=== PATIENT | female | born 1970 | race Caucasian/White ===

== ENCOUNTER 2023-02-24 12:11 | Emergency (ER) | payer MEDICAID, SELFPAY ==
[2023-02-24 12:12] VITALS: BP 173/91; PULSE 87; RESP 16; TEMP 36.2; O2SAT 99; BMI 27.6
--- NOTE | 2023-02-24 12:26 | EDS_ITS ---
HPI History of Present Illness Chief Complaint: Chest Pain Informant: patient Onset/Context/Timing Onset: Days Activity at onset: gradual Timing: Continuous Quality: Positive for Burning Location: Left Parasternal and Left Chest Current Severity: Mild Maximum Severity: Mild Worsened By: Nothing; Not Worsened By Exertion, Movement of Arm, Movement of Torso, Eating, Palpation, Breathing or Coughing Relieved By: Nothing Associated Symptoms: Negative for Nausea, Vomiting, Diaphoresis, Dyspnea, Cough, Fever, Lightheadedness, Acid Reflux or Palpitations Narrative Narrative: 52-year-old seen male no seen past medical history. No cardiac history. No history of DVT or PE or risk factors. States that she has had left-sided chest pain for the last 3 days it began on . Gradual. Continuous. Nothing particular makes it better or worse. Not associated with exertion. No shortness of breath. Not pleuritic. No palpitations. No nausea. No diaphoresis. No trouble walking. Prior Similar Symptoms: No Recent Illness/Hospitalization: No CVD Risk Factors: Negative for Hypertension, Diabetes, Hypercholesterolemia or Smoking PE Risk Factors: Negative for Recent Travel/Surgery, Recent Immobilization, Prior DVT or PE, Cancer or OCP + Smoking + >/=35 TAD Risk Factors: Negative for Marfan's Syndrome PFSH PFSH Medical History no medical history Allergy/AdvReac Type Severity Reaction Status Date / Time codeine Allergy Severe Swelling Verified 02/24/23 12:13 Family History no significant family his Social History Smoking Status: Never smoker ROS ROS ED ROS Narrative Chest pain. Otherwise no illness. No shortness of breath. Review of Systems ROS Unobtainable: Denies due to encephalopathy Constitutional Constitutional ED: Denies chills or fever(s) ENT ENT ED: Denies ear pain Cardiovascular Cardiovascular: Reports as per HPI and chest pain; Denies palpitations or racing heartbeat Respiratory/Chest Respiratory/Chest: Denies cough or dyspnea Gastrointestinal Gastrointestinal: Denies abdominal pain Genitourinary Genitourinary ED: Denies dysuria or hematuria Musculoskeletal Musculoskeletal: Denies arthralgias Integumentary Denies abscess Neurologic Neurologic: Denies headache(s) Psychiatric Psychiatric: Denies anxiety or depression Endocrine Endocrinology: Denies cold intolerance Hematologic/Lymphatic Hematologic/Lymphatic: Denies easy bleeding, easy bruising or lymphadenopathy Allergic/Immunologic Allergic/Immunologic ED: Denies mouth swelling, tongue swelling or urticaria EXAM Physical Exam Narrative Exam Narrative: 52-year-old female no acute distress. Vital signs stable afebrile. Pulse ox 99% on room air no signs of hypoxia. HEENT exam unremarkable. Neck nontender no JVD. Lungs clear to auscultation bilaterally. Heart regular rhythm no murmur. Chest wall nontender. No reproducible discomfort. No redness. No warmth. No bruising or trauma. Abdomen soft nontender. Moving all 4 extremities. Equal symmetrical radial pulses. 5-5 blow molding machine tender strength. Calves are nontender without edema or cords. Back is nontender. Neurologic exam is normal. Awake alert. Answering questions. Normal strength. Const Vital Signs: 02/24/23 12:12 02/24/23 12:24 02/24/23 12:24 Temperature 97.2 F L Temperature Source Temporal Pulse Rate 87 Respiratory Rate 16 Respiratory Effort Normal Blood Pressure 173/91 H Blood Pressure Mean 118 Pulse Ox 99 Oxygen Delivery Method Room Air Room Air 02/24/23 14:11 Temperature Temperature Source Pulse Rate 78 Respiratory Rate 17 Respiratory Effort Blood Pressure 166/89 H Blood Pressure Mean 114 Pulse Ox 98 Oxygen Delivery Method Room Air Positive well nourished and well developed; Negative for cachectic, contractures or unkempt General Appearance ED: well developed and NAD; Negative for unkempt, cachectic, contractures or pallor Nutritional Appearance: Negative for cachectic HEENT Reports moist mucous membranes normocephalic and atraumatic; Negative for trauma or tenderness Eyes PERRL and EOMs intact bilaterally General Eye ED: Negative for pale conjunctiva, scleral icterus or other Neck no lymphadenopathy, supple and no JVD General: Negative for tenderness Chest Wall inspection of chest normal and palpation of chest normal Chest: Negative for tenderness Resp normal respiratory effort and clear to auscultation bilaterally Effort and Inspection: Negative for respiratory distress Auscultation: Negative for rales, rhonchi or wheezes Cardio regular rate, regular rhythm, S1 normal heart sound, S2 normal heart sound and no murmurs Rate: Negative for bradycardia or tachycardic Rhythm: Negative for abnormal rhythm Peripheral Pulses: pulses 2+ throughout GI normal to inspection, nondistended, normoactive bowel sounds, soft to palpation, non-tender, non-distended and no masses Auscultation: Negative for hyperactive bowel sounds Palpation: Negative for mass Back/Spine no CVA tenderness and no thoracic nor lumbar tenderness General Back: Negative for CVA tenderness Cervical Spine: Negative for cervical spine tenderness Extremity normal to inspection General Extremety ED: Negative for edema, pulses abnormal or tenderness General Extremity: Negative for edema or pulses abnormal Neuro oriented x3 and CN's II-XII intact bilaterally Sensorium / Orientation: awake, alert, oriented to person, oriented to place and oriented to time; Negative for confused, lethargic or stuporous Motor Exam: strength 5/5 throughout Psych mental status grossly normal Appearance: Negative for unkempt Attitude: No agitated Mood & Affect: Negative for depressed, anxious or tearful Skin no rashes or lesions noted General Skin Exam: Negative for jaundice or pallor Rashes: No rashes noted Trauma: Negative for abrasion or laceration Heart Score History: Slightly/Non-Suspicious ECG: Normal Age: >45 - <65 years Risk Factors: No Risk Factors Troponin: </= Normal Limit Score: 1 MDM MDM MDM Narrative Medical decision making narrative: 52-year-old female with nonreproducible left-sided chest pain. Not associated with exertion. No DVT or PE history or risk factors. She will undergo cardiac work-up. Received p.o. aspirin. Repeat exam patient doing well at 3:35 PM. We went over all of her test re sults. She will be discharged home with chest pain uncertain etiology. Motrin and Tylenol for pain. Follow-up with her doctor if not improving. Return if worse. Has no family history of cardiac disease. She is informed to stop smoking. She is having no exertional symptoms. She be discharged to follow-up with a local primary care physician. History & Record Review Discussion w/independent historian: Patient Additional record(s) reviewed:: No prior records Lab Data Attestation: I reviewed the patient's lab results. Lab results narrative: CBC normal. White count of 6. H&H 13 and 40. Platelets 227. BMP shows potassium 3.4. Gap of 5. Normal BUN and creatinine of 15 and 0.8. Troponin is normal at 5. Glucose is 120. D-dimer was elevated 0.52 she will undergo a CTA of the chest. CTA of the chest showed no PE. Labs: Laboratory Results - last 24 hr 02/24/23 02/24/23 12:20 12:35 WBC 6.6 RBC 4.80 Hgb 13.0 Hct 40.6 MCV 84.6 MCH 27.1 MCHC 32.0 RDW Std Deviation 50.3 H RDW Coeff of Scott 16.1 H Plt Count 227 MPV 9.7 Immature Gran % (Auto) 0.300 Neut % (Auto) 56.3 Lymph % (Auto) 27.6 [place] % (Auto) 7.1 Eos % (Auto) 7.8 H Baso % (Auto) 0.9 Absolute Neuts (auto) 3.7 Absolute Lymphs (auto) 1.83 Nucleated RBC % 0 D-Dimer Quant (PE/DVT) 0.52 H* Sodium 140 Potassium 3.4 L Chloride 109 H Carbon Dioxide 26.0 Anion Gap 5 BUN 15 Creatinine 0.89 Estim Creat Clear Calc 68.05 Est GFR (MDRD) Af Amer 86 Est GFR (MDRD) Non-Af 71 BUN/Creatinine Ratio 16.8 Glucose 120 H Calcium 8.5 Troponin I High Sens 5 Radiography Chest X-Ray - ED: 1 View, Read by ED Physician, Read by Radiologist, Heart, Lungs, Mediastinum, Bony Structures, No Acute Disease and Chronic Changes Diagnostic Testing: Clinical Impression(s) from Imaging Studies Chest X-Ray 02/24/23 12:30 IMPRESSION: No acute cardiopulmonary disease. Electronically Signed: Richard Luu MD at 12:40 EST , Chest CTA 02/24/23 14:40 IMPRESSION: 1. No evidence of acute pulmonary embolism. 2. Diffuse centrilobular pulmonary emphysema. Electronically Signed: Richard Luu MD at 15:29 EST , Chest x-ray, portable, single view, interpreted both myself and the radiologist shows no acute abnormality. Normal cardiac silhouette. Normal mediastinum. Normal lung kendall. Rhythm Strip Rhythm Strip: Sinus Rhythm Rate: 87 Ectopy: None EKG Initial EKG: Attestation: I personally reviewed and interpreted this EKG as follows: Interpretation: Sinus Rhythm and No Acute Injury Pattern Comments: Sinus rhythm rate of 87 no acute signs of [place] or ischemia. There is some artifact. No prior EKG available for comparison. Prior EKG tracings: not available for review Prior: No Prior Discharge Plan Triage Chief Complaint: Chest Pain ED Provider: Greg Delacruz Dx/Rx/DC Orders Clinical Impression: Chest pain Instructions: ED Chest Pain, Uncertain Cause Primary Care Provider: Care Physician,Aure Primary Referrals: Hema Pradhan MD [Med Staff - Cad Designer] - 1 Week if not improving NOT,DEFINED [Non-Staff] - Activity Restrictions/Additional Instructions: Your test results were good. No signs of heart attack. No signs of a blood clot. Motrin and Tylenol for pain. This should progressively improve if not follow-up with your local primary care physician. Return if you are feeling a lot worse. Disposition Disposition: Home, Self Care
--- NOTE | 2023-02-24 12:30 | RAD_ITS ---
EXAM: XR CHEST, 1 VIEW CLINICAL INDICATION: chest pain TECHNIQUE: Frontal view of the chest. COMPARISON: No relevant prior studies available. FINDINGS: LUNGS AND PLEURAL SPACES: No consolidation or edema. No pneumothorax. No effusion. HEART: Normal heart size. MEDIASTINUM: No mediastinal or hilar mass. BONES/JOINTS: No acute abnormality. RAD/Chest 1 View (Portable) IMPRESSION: No acute cardiopulmonary disease. Electronically Signed: Richard Luu MD at 12:40 EST ,
[2023-02-24 12:39] LABS: Absolute Lymphocyte Count 1.83 X10^3/uL (0.83-4.51); Absolute Neutrophil Count 3.7 X10^3/uL (2.0-7.7); Basophil# 0.06 X10^3/uL; Basophil% 0.9 % (0-1); Eosinophil# 0.52 X10^3/uL; Eosinophils% 7.8 % (0-5); Hematocrit 40.6 % (37-47); Lymphocyte # 1.83 X10^3/ul (0.83-4.51); Lymphocyte % 27.6 % (19-41); Mean Corpuscular Hgb 27.1 pg (27.0-32.0); Mean Corpuscular Volume 84.6 fL (81-99); Mean Platelet Vol. 9.7 fl (6.2-12.0); Monocyte# 0.47 X10^3/uL; Monocyte% 7.1 % (0-10); NRBC Flagged by Analyzer 0 % (0-5); Neutrophil # 3.73 X10^3/uL (2.7-7.7); Neutrophil % 56.3 % (47-70); Platelet Count 227 K/mm3 (150-450); RBC Distribution Width CV 16.1 % (11.6-14.6); RBC Distribution Width SD 50.3 fl (35.1-43.9); White Blood Count 6.6 K/mm3 (4.4-11.0)
[2023-02-24 12:47] LABS: Anion Gap 5 (5-15); BUN 15 mg/dL (7-18); BUN/Creat Ratio 16.8 RATIO (10-20); Calcium,Total 8.5 mg/dL (8.5-10.1); Chloride 109 mmol/L (98-107); Creatinine, Serum 0.89 mg/dL (0.55-1.02); EST Glomerular Filtration Rate 71 mL/min (>60); Est Glom Filt Rate - Afr Amer 86 mL/min (>60); Estimated Creatinine Clearance 68.05 ml/min; Glucose 120 mg/dL (74-106); Potassium 3.4 mmol/L (3.5-5.1); Sodium Level 140 mmol/L (136-145); Troponin-I HS 5 pg/mL (3.0-54.0)
[2023-02-24 14:11] VITALS: BP 166/89; PULSE 78; RESP 17; O2SAT 98
[2023-02-24 14:39] LABS: D-Dimer Quantitative (DVT/PE) 0.52 FEU/ug/m (0.27-0.49)
--- NOTE | 2023-02-24 14:40 | CT_ITS ---
EXAM: CT ANGIOGRAPHY CHEST WITHOUT AND WITH INTRAVENOUS CONTRAST CLINICAL INDICATION: left cp. Elevated d-dimer TECHNIQUE: Helically acquired angiography images were obtained of the chest without and with intravenous contrast. This CT exam was performed using one or more of the following dose reduction techniques: automated exposure control, adjustment of the mA and/or kV according to patient size, and/or use of iterative reconstruction technique. MIP reconstructed images were created and reviewed. CONTRAST: IV 100mL [id number] COMPARISON: No relevant prior studies available. FINDINGS: PULMONARY ARTERIES: Normal. Normal in caliber. No evidence of pulmonary embolism. AORTA: Normal. Normal in caliber. No evidence of dissection. GREAT VESSELS OF AORTIC ARCH: Normal. Normal in caliber. No evidence of dissection. LUNGS AND PLEURAL SPACES: Diffuse centrilobular pulmonary emphysema. No airspace opacification of the lungs. No mass. No pleural effusion or thickening. HEART: Normal. No pericardial effusion. Normal heart size. No coronary artery calcification. MEDIASTINUM: Normal. No mediastinal or hilar adenopathy. Esophagus is unremarkable. No hiatal hernia. BONES/JOINTS: Normal. No suspicious lytic or blastic abnormality. STOMACH AND BOWEL: Surgical changes of fundoplication. CT/CTA Chest W/WO Contrast IMPRESSION: 1. No evidence of acute pulmonary embolism. 2. Diffuse centrilobular pulmonary emphysema. Electronically Signed: Richard Luu MD at 15:29 EST ,
== END 2023-02-24 15:45 | disposition home or self-care (01) ==
PROVIDERS: Emergency Provider Emergency Medicine; Visit Provider Emergency Medicine
DX: R07.9 Chest pain, unspecified (principal)
CPT/HCPCS: 71045; 71275; 80048; 84484; 85025; 85379; 93005; 99284; Q9967; A4216